=== PATIENT | female | born 1985 | race Caucasian/White ===

== ENCOUNTER 2016-12-07 13:29 | Emergency (ER) | payer OTHER ==
[~2016-12-07] VITALS: Ht 160 cm; Wt 77.8 kg
[2016-12-07 13:30] VITALS: BP 152/88
[2016-12-07] MEDS ORDERED: CIPR0.3S OU (13:55)
== END 2016-12-07 14:08 | disposition home or self-care (01) ==
LOC: M ED 14:01
DX: H10.32 Unspecified acute conjunctivitis, left eye (principal); F17.210 Nicotine dependence, cigarettes, uncomplicated